=== PATIENT | male | born 1930 | race Caucasian/White ===

== ENCOUNTER → 2018-01-27 | Outpatient (CLI) | payer MEDICARE, OTHER ==
[~2018-01-27] MED LIST: FAMO20 PO; LEVFLO500 PO; METO10 PO
[2018-01-27 09:32] LABS: Source, Urine Clean Catch
[2018-01-27 13:21] LABS: Bilirubin, Urine Neg (Neg); Blood, Urine 1+ (Neg); Glucose Qualitative, Urine Neg (Neg); Ketones, Urine Neg (Neg); Leukocyte Esterase, Urine 1+ (Neg); Nitrite, Urine Neg (Neg); Protein, Urine 1+ (Neg); Urobilinogen, Urine NORM (Normal)
[2018-01-27 13:51] LABS: Appearance, Urine Hazy (Clear); Color, Urine Yellow (P-Yellow)
[2018-01-27 13:52] LABS: Squamous Epithelial Cells Rare /hpf (Few)
[2018-01-27 13:53] LABS: Bacteria Few /hpf; Red Blood Cells, Urine Not Seen /hpf (0-2)
[2018-01-27 13:54] LABS: Mucus Mod (0-Heavy)
[2018-01-27 13:55] LABS: Hyaline Casts Rare /lpf (0-2)
== END | disposition home or self-care (01) ==
LOC: LAB 08:35
PROVIDERS: Nurse Practitioner Family
DX: R31.9 Hematuria, unspecified (principal)
CPT/HCPCS: 81001